=== PATIENT | female | born 1995 | race Caucasian/White ===

== ENCOUNTER 2020-04-12 07:43 | Inpatient (IN) ==
[2020-04-12 07:55] VITALS: BMI 38.8
[2020-04-12] MEDS ORDERED: LR 1000 ML IV 1,000 ML IV ONE ×2 (08:01→08:15)
[2020-04-12 08:05] LABS: AMNISURE ROM TEST THERE IS A RUPTURE (NO RUPTURE)
[2020-04-12] MEDS ORDERED: DILAUDID INJ ONE (08:15)
[2020-04-12] MEDS ORDERED: ANCEF VIAL 1 GRAM ONE (08:23)
[2020-04-12] MEDS ORDERED: NS 100 ML IV 100 ML IV ONE (08:23)
[2020-04-12] MEDS ORDERED: TORADOL 30 MG VIAL IVP PRN (08:32)
[2020-04-12] MEDS ORDERED: ZOFRAN INJ 4 MG VIAL IVP PRN ×2 (08:32→10:22)
[2020-04-12] MEDS ORDERED: ANCEF VIAL 1 GRAM IV ONE (08:32)
[2020-04-12] MEDS ORDERED: BENADRYL INJ 50 MG VIAL IVP PRN ×2 (08:32→10:22)
[2020-04-12] MEDS ORDERED: XYLOCAINE 2 % (PLAIN) ONE (08:36)
[2020-04-12] MEDS ORDERED: EPHEDRINE SULFATE INJ ONE (08:36)
[2020-04-12] MEDS ORDERED: REGLAN INJ 10 MG VIAL ONE (08:36)
[2020-04-12] MEDS ORDERED: NARCAN INJ ONE (08:36)
[2020-04-12] MEDS ORDERED: PITOCIN ONE (08:36)
[2020-04-12] MEDS ORDERED: MARCAINE SPINAL ONE (08:36)
[2020-04-12] MEDS ORDERED: DIPRIVAN VIAL ONE (08:36)
[2020-04-12] MEDS ORDERED: VERSED ONE (08:36)
[2020-04-12] MEDS ORDERED: ZOFRAN INJ 4 MG VIAL ONE (08:36)
[2020-04-12 08:39] LABS: BASOPHILS # (AUTO) 0.1 X10^3/uL (0.0-0.1); BASOPHILS % (AUTO) 0.8 % (0.2-1.0); EOSINOPHILS # (AUTO) 0.2 x10^3/uL (0.0-0.2); EOSINOPHILS % (AUTO) 1.9 % (0.9-2.9); HEMATOCRIT 33.8 % (36.0-47.0); HEMOGLOBIN 10.9 g/dL (12.0-16.0); LYMPHOCYTES # (AUTO) 1.6 X10^3/uL (1.3-2.9); LYMPHOCYTES % (AUTO) 17.8 % (21.0-51.0); MEAN CORPUSCULAR HEMOGLOBIN 23.4 pg (27.0-34.0); MEAN CORPUSCULAR HGB CONC 32.2 g/dL (33.0-35.0); MEAN CORPUSCULAR VOLUME 72.8 fL (80.0-100.0); MEAN PLATELET VOLUME 8.4 fL (7.4-11.0); MONOCYTES # (AUTO) 0.8 x10^3/uL (0.3-0.8); MONOCYTES % (AUTO) 8.9 % (0.0-13.0); NEUTROPHILS # (AUTO) 6.5 x10^3/uL (2.2-4.8); NEUTROPHILS % (AUTO) 70.6 % (42.0-75.0); PLATELET COUNT 196 X10^3/uL (150.0-450.0); RED BLOOD COUNT 4.64 X10^6/uL (3.5-5.4); RED CELL DISTRIBUTION WIDTH 15.1 % (11.6-16.5); WHITE BLOOD COUNT 9.2 X10^3/uL (3.6-10.0)
[2020-04-12 08:53] LABS: ALANINE AMINOTRANSFERASE 22 Units/L (12-78); ALBUMIN 2.1 g/dL (3.4-5.0); ALKALINE PHOSPHATASE 128 Units/L (46-116); ASPARTATE AMINO TRANSFERASE 21 Units/L (15-37); BLOOD UREA NITROGEN 7 mg/dL (7-18); CALCIUM 8.4 mg/dL (8.5-10.1); CARBON DIOXIDE 23.2 mmol/L (21-32); CHLORIDE 105 mmol/L (98-107); COR CA(FOR HYPOALB) 9.9 mg/dL (8.5-10.1); CREATININE 0.52 mg/dL (0.55-1.02); SODIUM 137 mmol/L (136-145); TOTAL PROTEIN 6.5 g/dL (6.4-8.2); eGFR NON BLACK RACES > 60 (>60)
[2020-04-12 08:55] LABS: HYPOCHROMASIA SLIGHT; PLATELET MORPHOLOGY COMMENT NORMAL (NORMAL)
[2020-04-12] MEDS ORDERED: D5 1/2 NS 1000 ML 1,000 ML IV SCH (09:00)
[2020-04-12 09:41] LABS: BILIRUBIN,URINE NEGATIVE (NEGATIVE); BLOOD/HEMOGLOBIN,URINE 1+ (NEGATIVE); GLUCOSE, URINE NEGATIVE (NEGATIVE); KETONES,URINE NEGATIVE (NEGATIVE); LEUKOCYTE ESTERASE ,URINE 1+ (NEGATIVE); NITRITES,URINE NEGATIVE (NEGATIVE); PROTEIN,URINE NEGATIVE (NEGATIVE); UROBILINOGEN,URINE NORMAL (NORMAL)
[2020-04-12] MEDS ORDERED: D5 1/2 NS 1L W PITOCIN 20 UNITS/L 20 UNITS/1,000 ML BAG IV ONE (09:44)
[2020-04-12 09:54] LABS: APPEARANCE,URINE CLEAR (CLEAR); COLOR,URINE YELLOW (YELLOW); RBC,URINE 0-2 /HPF (0-3)
[2020-04-12 09:55] LABS: BACTERIA,URINE NEGATIVE /HPF (NEGATIVE); SQUAMOUS EPITHELIAL CELL,UR NEGATIVE /HPF (NEGATIVE)
[2020-04-12] MEDS ORDERED: REGLAN INJ 10 MG VIAL IVP PRN ×2 (10:22→12:27)
[2020-04-12] MEDS ORDERED: PHENERGAN INJ 25 MG IM PRN (10:22)
[2020-04-12] MEDS ORDERED: D5 1/2 NS 1000 ML 1,000 ML with PITOCIN 20 UNITS IV SCH ×2 (12:27)
[2020-04-12] MEDS ORDERED: NARCAN INJ IVP PRN (12:27)
[2020-04-12] MEDS ORDERED: MYLICON TAB 80 MG CHEW PO PRN (12:27)
[2020-04-12] MEDS ORDERED: PERCOCET TAB 5/325 MG PO PRN (12:27)
[2020-04-12] MEDS ORDERED: ADACEL or BOOSTRIX TDaP VACCINE IM ONE (17:28)
[2020-04-12] MEDS: ADACEL or BOOSTRIX TDaP VACCINE IM ONE ×2 (17:40→17:43)
[2020-04-13 05:20] LABS: BASOPHILS % (AUTO) 0.4 % (0.2-1.0); EOSINOPHILS # (AUTO) 0.1 x10^3/uL (0.0-0.2); HEMATOCRIT 28.5 % (36.0-47.0); HEMOGLOBIN 9.3 g/dL (12.0-16.0); LYMPHOCYTES # (AUTO) 1.4 X10^3/uL (1.3-2.9); LYMPHOCYTES % (AUTO) 13.7 % (21.0-51.0); MEAN CORPUSCULAR HEMOGLOBIN 23.7 pg (27.0-34.0); MEAN CORPUSCULAR HGB CONC 32.6 g/dL (33.0-35.0); MEAN CORPUSCULAR VOLUME 72.7 fL (80.0-100.0); MEAN PLATELET VOLUME 8.2 fL (7.4-11.0); MONOCYTES % (AUTO) 9.5 % (0.0-13.0); NEUTROPHILS # (AUTO) 7.8 x10^3/uL (2.2-4.8); NEUTROPHILS % (AUTO) 75.4 % (42.0-75.0); PLATELET COUNT 168 X10^3/uL (150.0-450.0); RED BLOOD COUNT 3.92 X10^6/uL (3.5-5.4); RED CELL DISTRIBUTION WIDTH 15.5 % (11.6-16.5); WHITE BLOOD COUNT 10.3 X10^3/uL (3.6-10.0)
[2020-04-13 05:22] LABS: BLOOD UREA NITROGEN 4 mg/dL (7-18); CALCIUM 7.8 mg/dL (8.5-10.1); CARBON DIOXIDE 22.6 mmol/L (21-32); CHLORIDE 105 mmol/L (98-107); SODIUM 136 mmol/L (136-145); eGFR NON BLACK RACES > 60 (>60)
[2020-04-13 05:54] LABS: HYPOCHROMASIA 1+; PLATELET MORPHOLOGY COMMENT NORMAL (NORMAL)
[2020-04-13] MEDS ORDERED: PERCOCET TAB 5/325 MG PO PRN (06:20)
[2020-04-13] MEDS: MOTRIN TAB 800 MG PO PRN (09:35)
[2020-04-13] MEDS: FERROUS GLUCONATE PO SCH ×2 (09:35→17:39)
[2020-04-13] MEDS: PRENATAL PLUS PO SCH (09:35)
[2020-04-13] MEDS: COLACE CAP 100 MG PO SCH ×2 (09:35→20:31)
[2020-04-13] MEDS: BACTROBAN TOPICAL OINT TOP SCH ×2 (14:00→21:09)
[2020-04-14] MEDS: MOTRIN TAB 800 MG PO PRN (02:25)
[2020-04-14] MEDS: BACTROBAN TOPICAL OINT TOP SCH (05:41)
[2020-04-14] MEDS: FERROUS GLUCONATE PO SCH (06:11)
[2020-04-14] MEDS ORDERED: DEPO-PROVERA CONTRACEPTIVE INJ IM ONE (07:26)
[2020-04-14] MEDS: COLACE CAP 100 MG PO SCH (08:40)
[2020-04-14] MEDS: PRENATAL PLUS PO SCH (08:40)
[2020-04-14 11:29] VITALS: BP 117/68
== END 2020-04-14 12:10 | disposition home or self-care (01) | DRG 788 ==
LOC: ER 07:43 → LD 08:32 → MED/SURG 10:47
PROVIDERS: ADMIT Specialist; ATTEND Specialist
DX: O24.429 Gestational diabetes mellitus in childbirth, unspecified control; O34.211 Maternal care for low transverse scar from previous cesarean delivery; Z37.0 Single live birth; O99.02 Anemia complicating childbirth; Z3A.35 35 weeks gestation of pregnancy; Z98.891 History of uterine scar from previous surgery